=== PATIENT | female | born 1950 | race Caucasian/White ===

== ENCOUNTER 2017-11-04 10:54 | Inpatient (IN) | payer OTHER, BC ==
[~2017-11-04] VITALS: Ht 154.9 cm; Wt 89.6 kg
[2017-11-04 11:15] LABS: BASOPHIL (%) 0.3 % (0-1); EOSINOPHIL (%) 0.9 % (0-5); EOSINOPHIL COUNT 0.1 K/uL (0-0.3); HEMATOCRIT 38.3 % (36.0-46.0); HEMOGLOBIN 12.4 G/DL (11.9-15.5); IMMATURE GRANULOCYTE (%) 0.5 % (0.0-0.7); LYMPHOCYTE (%) 30.1 % (15-42); LYMPHOCYTE COUNT 4.5 K/uL (1.0-2.8); MCH 28.1 PG (29.0-34.0); MCHC 32.4 G/DL (30.0-36.0); MCV 86.7 FL (83-99); MONOCYTE (%) 5.3 % (3-12); MONOCYTE COUNT 0.8 K/uL (0-0.8); NEUTROPHIL (%) 62.9 % (45-76); NEUTROPHIL COUNT 9.4 K/uL (1.8-6.4); PLATELET COUNT 265 K/uL (156-360); RBC DIS.WIDTH-CV 15.7 % (11.8-14.6); RBC DIS.WIDTH-SD 49.1 % (39-53); RED BLOOD COUNT 4.42 M/uL (3.80-5.20); WHITE BLOOD COUNT 14.9 K/uL (4.1-10.2)
[2017-11-04 11:21] LABS: INTER. NORMALIZED RATIO 1.1
[2017-11-04 11:23] LABS: AMYLASE 41 IU/L (1-118); CHLORIDE 99 mEq/L (99-109); POTASSIUM 3.5 mEq/L (3.7-5.4); PTT 27.9 SEC (25-37); SODIUM 133 mEq/L (136-147)
[2017-11-04 11:24] LABS: GLUCOSE 85 mg/dL (70-99)
[2017-11-04 11:28] LABS: CREATININE 0.7 mg/dL (0.6-1.3); GFR ESTIMATE (CALCULATED) > 59 mL/min/
[2017-11-04 11:29] LABS: UREA NITROGEN (BUN) 16 mg/dL (9-23)
[2017-11-04 11:31] LABS: LIPASE 24 U/L (1.0-51.0)
[2017-11-04 11:33] LABS: TROP-I INTERPRETATION NEGATIVE; TROPONIN-I < 0.01 ng/mL (0.0-0.30)
[2017-11-04 15:25] LABS: HEMATOCRIT 35.7 % (36.0-46.0); HEMOGLOBIN 11.9 G/DL (11.9-15.5); MCH 28.5 PG (29.0-34.0); MCHC 33.3 G/DL (30.0-36.0); MCV 85.4 FL (83-99); PLATELET COUNT 240 K/uL (156-360); RBC DIS.WIDTH-CV 15.8 % (11.8-14.6); RBC DIS.WIDTH-SD 49.1 % (39-53); RED BLOOD COUNT 4.18 M/uL (3.80-5.20)
[2017-11-04 15:32] LABS: INTER. NORMALIZED RATIO 1.1
[2017-11-04 15:56] LABS: APPEARANCE CLEAR ((CLEAR)); BILIRUBIN NEGATIVE; BLOOD NEGATIVE; COLOR STRAW ((YELLOW)); GLUCOSE (STRIP) NEGATIVE; KETONES NEGATIVE; LEUKOCYTES NEGATIVE; NITRITE NEGATIVE; PROTEIN (STRIP) NEGATIVE; SPECIFIC GRAVITY 1.038 (1.000-1.030); UCUL ADDED? NO; UROBILINOGEN 0.2 MG/DL (0.2-1.0)
[2017-11-04 16:05] LABS: AMPHETAMINE NEGATIVE (500 ng/mL); BARBITURATES NEGATIVE (200 ng/mL); BENZODIAZEPINES PRESUMPTIVE POSITIVE (150 ng/mL); BUPRENORPHINE NEGATIVE (10 ng/mL); COCAINE NEGATIVE (150 ng/mL); METHADONE NEGATIVE (200 ng/mL); METHAMPHETAMINE NEGATIVE (500 ng/mL); OPIATES (MORPHINE) NEGATIVE (100 ng/mL); OXYCODONE NEGATIVE (100 ng/mL); PHENCYCLIDINE NEGATIVE (25 ng/mL); PROPOXYPHENE NEGATIVE (300 ng/mL); THC CANNABINOIDS NEGATIVE (50 ng/mL); TRICYCLIC ANTIDEPRESSANTS NEGATIVE (300 ng/mL)
[2017-11-04 16:06] LABS: ALBUMIN 3.6 G/DL (3.2-4.8); ALKALINE PHOSPHATASE 86 IU/L (3-129); ALT (GPT) 38 IU/L (3-49); AST (GOT) 29 IU/L (2-34); CHLORIDE 98 MEQ/L (99-109); CREATININE 0.6 MG/DL (0.6-1.3); GFR ESTIMATE (CALCULATED) > 59 mL/min/; GLUCOSE 90 mg/dL (70-99); HDL CHOLESTEROL 76 MG/DL (Desirable>=50); LDL CHOLESTEROL 72 mg/dL (Desirable<100); NON-HDL CHOLESTEROL 87 mg/dL (Desirable<160); POTASSIUM 3.5 MEQ/L (3.7-5.4); SODIUM 134 MEQ/L (136-147); TOTAL BILIRUBIN 0.4 MG/DL (0.0-1.0); TOTAL CHOLESTEROL 163 mg/dL (Desirable<200); TOTAL PROTEIN 6.8 G/DL (6.4-8.3); TRIGLYCERIDES 74 MG/DL (Normal: <150); UREA NITROGEN (BUN) 16 mg/dL (9-23)
[2017-11-04 16:35] LABS: BENZODIAZEPINES, URINE SCREEN POSITIVE (200 ng/mL)
[2017-11-04 16:39] LABS: ERTH.SED.RATE 56 MM/HR (0-30)
[2017-11-04] MEDS ORDERED: ACIPHEX20 MG PO (18:51)
[2017-11-04] MEDS ORDERED: CEFTIN500 MG PO (18:52)
[2017-11-04] MEDS ORDERED: ADVAIR HFA120 INHAL1 IH (18:52)
[2017-11-04] MEDS ORDERED: ACIDOPHILUS1 EAC5 PO (18:53)
[2017-11-04] MEDS ORDERED: PROAIR HFA8.5 GM IH (18:53)
[2017-11-04] MEDS ORDERED: DELTASONE20 M1 PO ×3 (18:54→18:55)
[2017-11-04] MEDS ORDERED: XANAX2 MG PO (18:54)
[2017-11-04] MEDS ORDERED: CHERATUSSIN AC473 ML PO (18:56)
[2017-11-04] MEDS ORDERED: LO-DOSE ASPIRIN81 M1 PO (18:56)
[2017-11-04] MEDS ORDERED: VITAMIN B-6100 MG PO (18:56)
[2017-11-04] MEDS ORDERED: ZYRTEC10 M3 PO (18:57)
[2017-11-04] MEDS ORDERED: AMMONIUM LACTA140 GM TP (18:57)
[2017-11-04] MEDS ORDERED: FINACEA 15% GEL50 GM TP (18:58)
[2017-11-04] MEDS ORDERED: AMBIEN10 MG PO (18:58)
[2017-11-04] MEDS ORDERED: CALCIUM 500 +1 EAC2 PO (18:58)
[2017-11-04] MEDS ORDERED: PROLIA60 MG/1 ML SC (19:00)
[2017-11-04] MEDS ORDERED: GLUCOPHAGE1000 MG PO (19:02)
[2017-11-04] MEDS ORDERED: HUMULIN R100 UNITS/ SC (19:02)
[2017-11-04] MEDS ORDERED: ONE DAILY1 EAC3 PO (19:02)
[2017-11-04] MEDS ORDERED: ZOCOR40 MG PO (19:02)
[2017-11-04] MEDS ORDERED: WELLBUTRIN XL300 MG PO (19:03)
[2017-11-04] MEDS ORDERED: LANTUS 3 M100 UNITS1 SC (19:04)
[2017-11-04] MEDS ORDERED: TRULICITY1.5 MG/0.5 SC (19:05)
[2017-11-04] MEDS ORDERED: FEMARA2.5 MG PO (19:06)
[2017-11-04] MEDS ORDERED: DIPHENOXYLATE-A60 ML PO (19:06)
[2017-11-04] MEDS ORDERED: LASIX20 MG PO (19:07)
[2017-11-04] MEDS ORDERED: BIOTIN1 MG PO (19:07)
[2017-11-04] MEDS ORDERED: PRISTIQ50 MG PO (19:07)
[2017-11-04] MEDS ORDERED: DIABETA5 MG PO (19:07)
[2017-11-04] MEDS ORDERED: LOTENSIN20 MG PO (19:08)
[2017-11-04] MEDS ORDERED: FLONASE16 G1 BOTH NARES (19:09)
[2017-11-04] MEDS ORDERED: K-DUR10 MEQ PO (19:10)
[2017-11-04 20:09] VITALS: BP 182/86
[2017-11-05] VITALS (8 sets, daily range): BP systolic 168–197; BP diastolic 79–88
[2017-11-05 09:15] LABS: HEMOGLOBIN A1c (GLYCOHEMOGLOB) 8.9 % (Below 5.7)
[2017-11-06] VITALS (7 sets, daily range): BP systolic 150–184; BP diastolic 74–87
[2017-11-06 07:06] LABS: BASOPHIL (%) 0.3 % (0-1); EOSINOPHIL (%) 0.9 % (0-5); EOSINOPHIL COUNT 0.1 K/uL (0-0.3); HEMATOCRIT 38.9 % (36.0-46.0); HEMOGLOBIN 12.6 G/DL (11.9-15.5); IMMATURE GRANULOCYTE (%) 0.3 % (0.0-0.7); LYMPHOCYTE COUNT 2.4 K/uL (1.0-2.8); MCH 27.9 PG (29.0-34.0); MCHC 32.4 G/DL (30.0-36.0); MCV 86.1 FL (83-99); MONOCYTE (%) 5.7 % (3-12); MONOCYTE COUNT 0.8 K/uL (0-0.8); NEUTROPHIL (%) 75.8 % (45-76); NEUTROPHIL COUNT 10.6 K/uL (1.8-6.4); PLATELET COUNT 271 K/uL (156-360); RBC DIS.WIDTH-CV 16.1 % (11.8-14.6); RBC DIS.WIDTH-SD 50.3 % (39-53); RED BLOOD COUNT 4.52 M/uL (3.80-5.20); WHITE BLOOD COUNT 13.9 K/uL (4.1-10.2)
[2017-11-06 07:41] LABS: CHLORIDE 97 MEQ/L (99-109); CREATININE 0.5 MG/DL (0.6-1.3); GFR ESTIMATE (CALCULATED) > 59 mL/min/; MAGNESIUM 1.8 mg/dl (1.3-2.7); POTASSIUM 3.7 MEQ/L (3.7-5.4); SODIUM 129 MEQ/L (136-147); UREA NITROGEN (BUN) 9 mg/dL (9-23)
[2017-11-06 07:43] LABS: GLUCOSE 175 mg/dL (70-99)
[2017-11-07 04:00] VITALS: BP 138/66
[2017-11-07 06:34] LABS: BASOPHIL (%) 0.2 % (0-1); EOSINOPHIL (%) 1.1 % (0-5); EOSINOPHIL COUNT 0.2 K/uL (0-0.3); HEMATOCRIT 37.7 % (36.0-46.0); HEMOGLOBIN 12.1 G/DL (11.9-15.5); IMMATURE GRANULOCYTE (%) 0.6 % (0.0-0.7); LYMPHOCYTE (%) 17.5 % (15-42); LYMPHOCYTE COUNT 2.5 K/uL (1.0-2.8); MCH 27.8 PG (29.0-34.0); MCHC 32.1 G/DL (30.0-36.0); MCV 86.7 FL (83-99); MONOCYTE (%) 6.1 % (3-12); MONOCYTE COUNT 0.9 K/uL (0-0.8); NEUTROPHIL (%) 74.5 % (45-76); NEUTROPHIL COUNT 10.6 K/uL (1.8-6.4); PLATELET COUNT 252 K/uL (156-360); RBC DIS.WIDTH-CV 15.9 % (11.8-14.6); RBC DIS.WIDTH-SD 50.1 % (39-53); RED BLOOD COUNT 4.35 M/uL (3.80-5.20); WHITE BLOOD COUNT 14.2 K/uL (4.1-10.2)
[2017-11-07 07:10] LABS: CHLORIDE 97 MEQ/L (99-109); CREATININE 0.6 MG/DL (0.6-1.3); GFR ESTIMATE (CALCULATED) > 59 mL/min/; GLUCOSE 154 mg/dL (70-99); SODIUM 131 MEQ/L (136-147); UREA NITROGEN (BUN) 7 mg/dL (9-23)
[2017-11-07 07:22] LABS: MAGNESIUM 2.1 mg/dl (1.3-2.7); POTASSIUM 4.6 MEQ/L (3.7-5.4)
[2017-11-07 08:11] VITALS: BP 152/82
[2017-11-07] MEDS ORDERED: AMLODIPINE BESYL5 MG PO (11:50)
[2017-11-07] MEDS ORDERED: ATORVASTATIN CA80 MG PO (11:50)
[2017-11-07] MEDS ORDERED: BENAZEPRIL HCL40 MG PO (11:51)
[2017-11-07] MEDS ORDERED: ASPIRIN EC325 MG PO (11:51)
[2017-11-07] MEDS ORDERED: LANTUS 3 M100 UNITS1 SC (11:54)
[2017-11-07 13:05] VITALS: BP 158/77
[2017-11-07] MEDS ORDERED: CLARITIN,ALAVAR10 MG PO (15:39)
[2017-11-07] MEDS ORDERED: ZESTRIL40 MG PO (15:44)
[2017-11-07] MEDS ORDERED: XANAX1 MG PO (15:50)
[2017-11-07] MEDS ORDERED: LOVENOX40 MG/0.4 SC (16:13)
[2017-11-07] MEDS ORDERED: GLUCOTROL10 MG PO (16:14)
[2017-11-07] MEDS ORDERED: LEVEMIR FL100 UNIT/1 SC (16:16)
[2017-11-07] MEDS ORDERED: NOVOLOG 10100 UNITS/ SC (16:17)
== END 2017-11-07 13:41 | DRG 65 ==
LOC: EME 10:54 → 5SOUTH 14:14 → EDOF 14:14 → ENRESERV 14:15 → 5SOUTH 16:18 → ENPENDDIS 11-07 12:13 → 5SOUTH 11-07 13:41
PROVIDERS: Emergency Medicine; Internal Medicine; Physician Assistant
DX: I63.9 Cerebral infarction, unspecified (principal); R47.1 Dysarthria and anarthria; R13.10 Dysphagia, unspecified; R47.01 Aphasia; R29.810 Facial weakness; M62.81 Muscle weakness (generalized); E87.1 Hypo-osmolality and hyponatremia; J40 Bronchitis, not specified as acute or chronic; J32.9 Chronic sinusitis, unspecified; D72.829 Elevated white blood cell count, unspecified; T38.0X5A Adverse effect of glucocorticoids and synthetic analogues, initial encounter; I10 Essential (primary) hypertension; E11.9 Type 2 diabetes mellitus without complications; E78.5 Hyperlipidemia, unspecified; E55.9 Vitamin D deficiency, unspecified; R06.83 Snoring; R60.0 Localized edema; R11.2 Nausea with vomiting, unspecified; M81.0 Age-related osteoporosis without current pathological fracture; I89.0 Lymphedema, not elsewhere classified; F41.9 Anxiety disorder, unspecified; E66.9 Obesity, unspecified; Z68.37 Body mass index [BMI] 37.0-37.9, adult; Z85.3 Personal history of malignant neoplasm of breast; Z90.13 Acquired absence of bilateral breasts and nipples; Z92.3 Personal history of irradiation
CPT/HCPCS: 70450; 70496; 70498; 70551; 80048; 80053; 80061; 81003; 82150; 82948; 83036; 83690; 83735; 83930; 83935; 84300; 84484; 84999; 85025; 85027; 85610; 85652; 85730; 92526 GN; 92610 GN; 93005; 93306; 94640 76; 97530 GO; 99202; 99281; 99285; J0360; J1650; J1815; J1885; J2405; J2765; J3480

== ENCOUNTER 2017-11-06 12:17 | Inpatient (IN) | payer OTHER, BC ==
[~2017-11-06] VITALS: Ht 152.4 cm; Wt 90.9 kg
[~2017-11-06 12:17] MED LIST: ACIDOPHILUS1 EAC5 PO; ACIPHEX20 MG PO; ADVAIR HFA120 INHAL1 IH; AMBIEN10 MG PO; AMMONIUM LACTA140 GM TP; BIOTIN1 MG PO; CALCIUM 500 +1 EAC2 PO; CEFTIN500 MG PO; CHERATUSSIN AC473 ML PO; DELTASONE20 M1 PO; DIABETA5 MG PO; DIPHENOXYLATE-A60 ML PO; FEMARA2.5 MG PO; FINACEA 15% GEL50 GM TP; FLONASE16 G1 BOTH NARES; GLUCOPHAGE1000 MG PO; HUMULIN R100 UNITS/ SC; K-DUR10 MEQ PO; LANTUS 3 M100 UNITS1 SC; LASIX20 MG PO; LO-DOSE ASPIRIN81 M1 PO; LOTENSIN20 MG PO; ONE DAILY1 EAC3 PO; PRISTIQ50 MG PO; PROAIR HFA8.5 GM IH; PROLIA60 MG/1 ML SC; TRULICITY1.5 MG/0.5 SC; VITAMIN B-6100 MG PO; WELLBUTRIN XL300 MG PO; XANAX2 MG PO; ZOCOR40 MG PO; ZYRTEC10 M3 PO
[2017-11-07] MEDS ORDERED: AMLODIPINE BESYL5 MG PO (11:50)
[2017-11-07] MEDS ORDERED: ATORVASTATIN CA80 MG PO (11:50)
[2017-11-07] MEDS ORDERED: ASPIRIN EC325 MG PO (11:51)
[2017-11-07] MEDS ORDERED: BENAZEPRIL HCL40 MG PO (11:51)
[2017-11-07] MEDS ORDERED: LANTUS 3 M100 UNITS1 SC (11:54)
[2017-11-07 14:25] VITALS: BP 164/82
[2017-11-07 14:56] VITALS: BP 161/70
[2017-11-07] MEDS ORDERED: CLARITIN,ALAVAR10 MG PO (15:39)
[2017-11-07] MEDS ORDERED: ZESTRIL40 MG PO (15:44)
[2017-11-07] MEDS ORDERED: XANAX1 MG PO (15:50)
[2017-11-07] MEDS ORDERED: LOVENOX40 MG/0.4 SC (16:13)
[2017-11-07] MEDS ORDERED: GLUCOTROL10 MG PO (16:14)
[2017-11-07] MEDS ORDERED: LEVEMIR FL100 UNIT/1 SC (16:16)
[2017-11-07] MEDS ORDERED: NOVOLOG 10100 UNITS/ SC (16:17)
[2017-11-07 16:51] LABS: HEMOGLOBIN 12.6 G/DL (11.9-15.5); MCH 27.8 PG (29.0-34.0); MCHC 32.3 G/DL (30.0-36.0); MCV 85.9 FL (83-99); PLATELET COUNT 284 K/uL (156-360); RBC DIS.WIDTH-SD 49.9 % (39-53); RED BLOOD COUNT 4.54 M/uL (3.80-5.20); WHITE BLOOD COUNT 15.4 K/uL (4.1-10.2)
[2017-11-07 17:22] LABS: ALBUMIN 3.7 G/DL (3.2-4.8); ALKALINE PHOSPHATASE 98 IU/L (3-129); ALT (GPT) 31 IU/L (3-49); AST (GOT) 29 IU/L (2-34); CHLORIDE 97 MEQ/L (99-109); CREATININE 0.6 MG/DL (0.6-1.3); GFR ESTIMATE (CALCULATED) > 59 mL/min/; GLUCOSE 191 mg/dL (70-99); POTASSIUM 4.6 MEQ/L (3.7-5.4); SODIUM 131 MEQ/L (136-147); TOTAL PROTEIN 6.6 G/DL (6.4-8.3); UREA NITROGEN (BUN) 7 mg/dL (9-23)
[2017-11-07 17:23] LABS: TOTAL BILIRUBIN 0.6 MG/DL (0.0-1.0)
[2017-11-08 06:21] VITALS: BP 160/70
[2017-11-08 09:40] LABS: HEMATOCRIT 39.1 % (36.0-46.0); HEMOGLOBIN 12.5 G/DL (11.9-15.5); MCH 28.1 PG (29.0-34.0); MCV 87.9 FL (83-99); PLATELET COUNT 246 K/uL (156-360); RBC DIS.WIDTH-CV 16.3 % (11.8-14.6); RBC DIS.WIDTH-SD 52.3 % (39-53); RED BLOOD COUNT 4.45 M/uL (3.80-5.20)
[2017-11-08 15:00] VITALS: BP 146/68
[2017-11-09 04:40] LABS: HEMATOCRIT 36.8 % (36.0-46.0); HEMOGLOBIN 12.1 G/DL (11.9-15.5); MCH 28.6 PG (29.0-34.0); MCHC 32.9 G/DL (30.0-36.0); PLATELET COUNT 238 K/uL (156-360); RBC DIS.WIDTH-CV 16.1 % (11.8-14.6); RBC DIS.WIDTH-SD 51.3 % (39-53); RED BLOOD COUNT 4.23 M/uL (3.80-5.20); WHITE BLOOD COUNT 11.6 K/uL (4.1-10.2)
[2017-11-09 05:54] VITALS: BP 172/80
[2017-11-09 09:17] LABS: CHLORIDE 101 MEQ/L (99-109); CREATININE 0.6 MG/DL (0.6-1.3); GFR ESTIMATE (CALCULATED) > 59 mL/min/; GLUCOSE 151 mg/dL (70-99); POTASSIUM 4.4 MEQ/L (3.7-5.4); SODIUM 134 MEQ/L (136-147); UREA NITROGEN (BUN) 11 mg/dL (9-23)
[2017-11-09 10:30] VITALS: BP 138/79
[2017-11-09 15:58] VITALS: BP 121/65
[2017-11-09 22:52] VITALS: BP 126/60
[2017-11-10 04:51] VITALS: BP 139/63
[2017-11-10 15:10] VITALS: BP 122/57
[2017-11-11 06:13] VITALS: BP 114/71
[2017-11-11 16:18] VITALS: BP 134/63
[2017-11-12 05:09] VITALS: BP 125/58
[2017-11-12 15:32] VITALS: BP 129/65
[2017-11-13 04:57] VITALS: BP 133/78
[2017-11-13 10:04] LABS: C DIFF TOXIN NEGATIVE (NEGATIVE)
[2017-11-13 15:19] VITALS: BP 144/72
[2017-11-14 06:15] VITALS: BP 159/69
[2017-11-14 15:15] VITALS: BP 140/68
[2017-11-15 06:10] VITALS: BP 126/68
[2017-11-15 15:03] VITALS: BP 110/58
[2017-11-16 10:13] LABS: HEMATOCRIT 38.9 % (36.0-46.0); HEMOGLOBIN 12.5 G/DL (11.9-15.5); MCHC 32.1 G/DL (30.0-36.0); MCV 87.2 FL (83-99); PLATELET COUNT 254 K/uL (156-360); RBC DIS.WIDTH-CV 15.5 % (11.8-14.6); RBC DIS.WIDTH-SD 49.4 % (39-53); RED BLOOD COUNT 4.46 M/uL (3.80-5.20); WHITE BLOOD COUNT 9.3 K/uL (4.1-10.2)
[2017-11-16 10:51] LABS: ALBUMIN 3.8 G/DL (3.2-4.8); ALKALINE PHOSPHATASE 119 IU/L (3-129); ALT (GPT) 34 IU/L (3-49); AST (GOT) 30 IU/L (2-34); CHLORIDE 95 MEQ/L (99-109); CREATININE 0.6 MG/DL (0.6-1.3); GFR ESTIMATE (CALCULATED) > 59 mL/min/; GLUCOSE 195 mg/dL (70-99); POTASSIUM 4.7 MEQ/L (3.7-5.4); SODIUM 132 MEQ/L (136-147); TOTAL BILIRUBIN 0.5 MG/DL (0.0-1.0); UREA NITROGEN (BUN) 11 mg/dL (9-23)
[2017-11-16 15:37] VITALS: BP 114/59
[2017-11-17 06:34] VITALS: BP 116/61
[2017-11-17 14:55] VITALS: BP 119/62
[2017-11-18 06:38] VITALS: BP 127/62
[2017-11-18 15:05] VITALS: BP 134/73
[2017-11-19 07:00] VITALS: BP 152/71
[2017-11-19 15:02] VITALS: BP 129/62
[2017-11-19] MEDS ORDERED: ATORVASTATIN CA80 MG PO (17:59)
[2017-11-19] MEDS ORDERED: AMLODIPINE BESY10 MG PO (17:59)
[2017-11-19] MEDS ORDERED: GLUCOPHAGE1000 MG PO (17:59)
[2017-11-19] MEDS ORDERED: ASPIRIN EC325 MG PO (17:59)
[2017-11-19] MEDS ORDERED: BENAZEPRIL HCL40 MG PO (17:59)
[2017-11-19] MEDS ORDERED: K-DUR10 MEQ PO (17:59)
[2017-11-20 06:24] VITALS: BP 115/62
[2017-11-20 08:03] LABS: HEMATOCRIT 37.6 % (36.0-46.0); HEMOGLOBIN 12.3 G/DL (11.9-15.5); MCH 28.4 PG (29.0-34.0); MCHC 32.7 G/DL (30.0-36.0); MCV 86.8 FL (83-99); PLATELET COUNT 232 K/uL (156-360); RBC DIS.WIDTH-CV 15.4 % (11.8-14.6); RBC DIS.WIDTH-SD 48.8 % (39-53); RED BLOOD COUNT 4.33 M/uL (3.80-5.20); WHITE BLOOD COUNT 7.4 K/uL (4.1-10.2)
[2017-11-20 08:36] LABS: ALBUMIN 3.7 G/DL (3.2-4.8); ALKALINE PHOSPHATASE 110 IU/L (3-129); ALT (GPT) 37 IU/L (3-49); AST (GOT) 31 IU/L (2-34); CHLORIDE 98 MEQ/L (99-109); CREATININE 0.6 MG/DL (0.6-1.3); GFR ESTIMATE (CALCULATED) > 59 mL/min/; GLUCOSE 160 mg/dL (70-99); POTASSIUM 4.3 MEQ/L (3.7-5.4); SODIUM 132 MEQ/L (136-147); TOTAL BILIRUBIN 0.4 MG/DL (0.0-1.0); TOTAL PROTEIN 6.8 G/DL (6.4-8.3); UREA NITROGEN (BUN) 10 mg/dL (9-23)
[2017-11-20 16:27] VITALS: BP 110/59
[2017-11-20] MEDS ORDERED: ALPRAZOLAM0.5 MG PO (18:51)
[2017-11-21 06:36] VITALS: BP 114/69
[2017-11-21] MEDS ORDERED: NORVASC10 MG PO (11:11)
== END 2017-11-21 11:20 | DRG 57 ==
LOC: 3WEST 12:17 → ENPENDDIS 11-19 → 3WEST 11-21 11:20
PROVIDERS: Physical Medicine & Rehabilitation; Physical Medicine & Rehabilitation Pain Medicine; Physician Assistant Medical
PROC: F07M0ZZ Range of Motion and Joint Mobility Treatment of Musculoskeletal System - Whole Body (ICD-10-PCS; principal; 2017-11-07)
DX: I69.351 Hemiplegia and hemiparesis following cerebral infarction affecting right dominant side (principal); I69.322 Dysarthria following cerebral infarction; I69.391 Dysphagia following cerebral infarction; R13.10 Dysphagia, unspecified; E87.1 Hypo-osmolality and hyponatremia; J02.9 Acute pharyngitis, unspecified; H10.9 Unspecified conjunctivitis; J32.9 Chronic sinusitis, unspecified; E11.9 Type 2 diabetes mellitus without complications; E78.5 Hyperlipidemia, unspecified; I10 Essential (primary) hypertension; M81.0 Age-related osteoporosis without current pathological fracture; F32.9 Major depressive disorder, single episode, unspecified; F41.9 Anxiety disorder, unspecified; G89.29 Other chronic pain; K58.0 Irritable bowel syndrome with diarrhea; E55.9 Vitamin D deficiency, unspecified; E66.9 Obesity, unspecified; Z96.653 Presence of artificial knee joint, bilateral; Z68.39 Body mass index [BMI] 39.0-39.9, adult; Z85.3 Personal history of malignant neoplasm of breast; Z88.1 Allergy status to other antibiotic agents
CPT/HCPCS: 70450; 74230; 80048; 80053; 82948; 85027; 87493; 92507 GN; 92523 GN; 92526 GN; 92610 GN; 92611 GN; 97110 GO; 97112 GO; 97530 GP; J1650; J1815

== ENCOUNTER 2017-12-18 09:41 | Inpatient (IN) | payer OTHER, BC ==
[~2017-12-18] VITALS: Ht 152.4 cm; Wt 83.3 kg
[~2017-12-18 09:41] MED LIST changes: +ALPRAZOLAM0.5 MG PO; +AMLODIPINE BESY10 MG PO; +AMLODIPINE BESYL5 MG PO; +ASPIRIN EC325 MG PO; +ATORVASTATIN CA80 MG PO; +BENAZEPRIL HCL40 MG PO; -BIOTIN1 MG PO; -CALCIUM 500 +1 EAC2 PO; +CLARITIN,ALAVAR10 MG PO; +GLUCOTROL10 MG PO; +LEVEMIR FL100 UNIT/1 SC; +LOVENOX40 MG/0.4 SC; +MEGA BIOTIN10000 MCG PO; +NORVASC10 MG PO; +NOVOLOG 10100 UNITS/ SC; +SUPER CALCIUM600 MG PO; +XANAX1 MG PO; +ZESTRIL40 MG PO
[2017-12-18 10:09] LABS: BASOPHIL (%) 0.3 % (0-1); EOSINOPHIL (%) 1.6 % (0-5); EOSINOPHIL COUNT 0.1 K/uL (0-0.3); HEMATOCRIT 39.2 % (36.0-46.0); IMMATURE GRANULOCYTE (%) 0.3 % (0.0-0.7); LYMPHOCYTE COUNT 1.7 K/uL (1.0-2.8); MCH 28.4 PG (29.0-34.0); MCHC 33.2 G/DL (30.0-36.0); MCV 85.6 FL (83-99); MONOCYTE COUNT 0.5 K/uL (0-0.8); NEUTROPHIL (%) 73.8 % (45-76); NEUTROPHIL COUNT 6.6 K/uL (1.8-6.4); PLATELET COUNT 236 K/uL (156-360); RBC DIS.WIDTH-CV 14.3 % (11.8-14.6); RBC DIS.WIDTH-SD 44.5 % (39-53); RED BLOOD COUNT 4.58 M/uL (3.80-5.20); WHITE BLOOD COUNT 8.9 K/uL (4.1-10.2)
[2017-12-18 10:15] LABS: INTER. NORMALIZED RATIO 1.1
[2017-12-18 10:17] LABS: PTT 34.4 SEC (25-37)
[2017-12-18 10:20] LABS: AMYLASE 40 IU/L (1-118); CHLORIDE 98 mEq/L (99-109); POTASSIUM 4.4 mEq/L (3.7-5.4); SODIUM 136 mEq/L (136-147)
[2017-12-18 10:22] LABS: GLUCOSE 209 mg/dL (70-99)
[2017-12-18 10:25] LABS: SERUM ETHYL ALCOHOL < 10 mg/dL
[2017-12-18 10:26] LABS: CREATININE 0.7 mg/dL (0.6-1.3); GFR ESTIMATE (CALCULATED) > 59 mL/min/; UREA NITROGEN (BUN) 18 mg/dL (9-23)
[2017-12-18 10:29] LABS: TROP-I INTERPRETATION NEGATIVE; TROPONIN-I < 0.01 ng/mL (0.0-0.30)
[2017-12-18 10:29] LABS: LIPASE 25 U/L (1.0-51.0)
[2017-12-18 13:09] LABS: APPEARANCE CLEAR ((CLEAR)); BILIRUBIN NEGATIVE; BLOOD NEGATIVE; COLOR STRAW ((YELLOW)); GLUCOSE (STRIP) NEGATIVE; KETONES NEGATIVE; LEUKOCYTES NEGATIVE; NITRITE NEGATIVE; PROTEIN (STRIP) NEGATIVE; SPECIFIC GRAVITY 1.024 (1.000-1.030); UCUL ADDED? NO; UROBILINOGEN 0.2 MG/DL (0.2-1.0)
[2017-12-18 13:16] LABS: TROP-I INTERPRETATION NEGATIVE; TROPONIN-I < 0.01 ng/mL (0.0-0.30)
[2017-12-18 13:20] LABS: AMPHETAMINE NEGATIVE (500 ng/mL); BARBITURATES NEGATIVE (200 ng/mL); BENZODIAZEPINES PRESUMPTIVE POSITIVE (150 ng/mL); BUPRENORPHINE NEGATIVE (10 ng/mL); COCAINE NEGATIVE (150 ng/mL); METHADONE NEGATIVE (200 ng/mL); METHAMPHETAMINE NEGATIVE (500 ng/mL); OPIATES (MORPHINE) NEGATIVE (100 ng/mL); OXYCODONE NEGATIVE (100 ng/mL); PHENCYCLIDINE NEGATIVE (25 ng/mL); PROPOXYPHENE NEGATIVE (300 ng/mL); THC CANNABINOIDS NEGATIVE (50 ng/mL); TRICYCLIC ANTIDEPRESSANTS NEGATIVE (300 ng/mL)
[2017-12-18] MEDS ORDERED: LOTENSIN20 MG PO (14:19)
[2017-12-18 14:25] LABS: HDL CHOLESTEROL 51 MG/DL (Desirable>=50); LDL CHOLESTEROL 46 mg/dL (Desirable<100); NON-HDL CHOLESTEROL 64 mg/dL (Desirable<160); TOTAL CHOLESTEROL 115 mg/dL (Desirable<200); TRIGLYCERIDES 88 MG/DL (Normal: <150)
[2017-12-18] MEDS ORDERED: ADVAIR HFA120 INHAL1 IH (14:25)
[2017-12-18 14:26] LABS: BENZODIAZEPINES, URINE SCREEN POSITIVE (200 ng/mL)
[2017-12-18] MEDS ORDERED: HUMULIN R100 UNITS/ SC (14:31)
[2017-12-18] MEDS ORDERED: ZOCOR80 MG PO (14:35)
[2017-12-18 15:00] VITALS: BP 117/62
[2017-12-18 19:25] VITALS: BP 128/64
[2017-12-18 23:50] VITALS: BP 136/86
[2017-12-19 03:50] VITALS: BP 150/72
[2017-12-19 06:12] LABS: BASOPHIL (%) 0.6 % (0-1); BASOPHIL COUNT 0.1 K/uL (0-0.1); EOSINOPHIL (%) 2.9 % (0-5); EOSINOPHIL COUNT 0.2 K/uL (0-0.3); HEMATOCRIT 37.1 % (36.0-46.0); HEMOGLOBIN 11.8 G/DL (11.9-15.5); IMMATURE GRANULOCYTE (%) 0.3 % (0.0-0.7); LYMPHOCYTE (%) 29.2 % (15-42); LYMPHOCYTE COUNT 2.3 K/uL (1.0-2.8); MCH 27.3 PG (29.0-34.0); MCHC 31.8 G/DL (30.0-36.0); MCV 85.9 FL (83-99); MONOCYTE (%) 7.3 % (3-12); MONOCYTE COUNT 0.6 K/uL (0-0.8); NEUTROPHIL (%) 59.7 % (45-76); NEUTROPHIL COUNT 4.7 K/uL (1.8-6.4); PLATELET COUNT 221 K/uL (156-360); RBC DIS.WIDTH-CV 14.1 % (11.8-14.6); RBC DIS.WIDTH-SD 44.4 % (39-53); RED BLOOD COUNT 4.32 M/uL (3.80-5.20); WHITE BLOOD COUNT 7.8 K/uL (4.1-10.2)
[2017-12-19 06:35] LABS: CHLORIDE 102 MEQ/L (99-109); CREATININE 0.6 MG/DL (0.6-1.3); GFR ESTIMATE (CALCULATED) > 59 mL/min/; GLUCOSE 122 mg/dL (70-99); SODIUM 137 MEQ/L (136-147); UREA NITROGEN (BUN) 11 mg/dL (9-23)
[2017-12-19 07:23] VITALS: BP 131/63
[2017-12-19 08:55] LABS: HEMOGLOBIN A1c (GLYCOHEMOGLOB) 7.5 % (Below 5.7)
[2017-12-19 11:07] VITALS: BP 141/67
[2017-12-19 15:34] VITALS: BP 104/57
[2017-12-19 19:51] VITALS: BP 131/80
[2017-12-20 00:30] VITALS: BP 131/69
[2017-12-20 04:03] VITALS: BP 132/64
[2017-12-20 07:02] LABS: CHLORIDE 101 MEQ/L (99-109); CREATININE 0.6 MG/DL (0.6-1.3); GFR ESTIMATE (CALCULATED) > 59 mL/min/; GLUCOSE 126 mg/dL (70-99); SODIUM 136 MEQ/L (136-147); UREA NITROGEN (BUN) 8 mg/dL (9-23)
[2017-12-20 07:52] VITALS: BP 117/68
[2017-12-20 12:00] VITALS: BP 117/67
[2017-12-20] MEDS ORDERED: ASPIR-LOW81 MG PO (12:28)
[2017-12-20] MEDS ORDERED: CLOPIDOGREL75 MG PO (12:28)
== END 2017-12-20 13:51 | disposition home or self-care (01) | DRG 57 ==
LOC: EME 09:41 → EDOF 11:51 → ENRESERV 11:52 → 5SOUTH 14:31 → ENPENDDIS 12-20 12:31 → 5SOUTH 12-20 13:51
PROVIDERS: Emergency Medicine; Hospitalist
DX: G81.91 Hemiplegia, unspecified affecting right dominant side (principal); R47.1 Dysarthria and anarthria; R47.01 Aphasia; R47.81 Slurred speech; E78.5 Hyperlipidemia, unspecified; M81.0 Age-related osteoporosis without current pathological fracture; R29.704 NIHSS score 4; Z96.653 Presence of artificial knee joint, bilateral; E11.65 Type 2 diabetes mellitus with hyperglycemia; K21.9 Gastro-esophageal reflux disease without esophagitis; I10 Essential (primary) hypertension; E66.9 Obesity, unspecified; I69.351 Hemiplegia and hemiparesis following cerebral infarction affecting right dominant side; Z68.35 Body mass index [BMI] 35.0-35.9, adult; Z79.82 Long term (current) use of aspirin; Z79.4 Long term (current) use of insulin; I69.328 Other speech and language deficits following cerebral infarction; Z92.3 Personal history of irradiation; Z85.3 Personal history of malignant neoplasm of breast; Z90.13 Acquired absence of bilateral breasts and nipples
CPT/HCPCS: 70450; 70496; 70498; 70551; 80047; 80048; 80061; 81003; 82150; 82948; 83036; 83690; 84484; 84999; 85025; 85610; 85730; 86850; 86900; 86901; 93005; 99202; G0480; J1650; J7030